=== PATIENT | female | born 1960 | race Two or more races ===

== ENCOUNTER → 2017-05-22 | Outpatient (CLI) | payer OTHER ==
[~2017-05-22] MED LIST: LORTAB 7.51 TAB PO; PHENERGAN PO; PREMPRO 0.3 MG/1 TAB PO; PROTONIX PO
--- NOTE | ~2017-05-22 | CR97 ---
[facility] A Service of [facility] & [facility] RADIOLOGY TEXT RESULTS PATIENT: SERENE GUPTA LOCATION: [facility] : 64 UNIT #: [id number] AGE: [address]: Sharad Barney III, MD SEX: F ORDER DR: [id number] [facility] [address] [place], [place] [address] [id number] O MR#: [id number] Acc #: [id number] NAME: SERENE GUPTA : 1960 SEX: F STUDY DATE/TIME: 05/22/2017 9:41 UNIT: [facility] ROOM: STUDY DESCRIPTION: CR Esophagram Attending Physician: Sharad Barney III, M.D. Referring Physician: Sharad Barney III, M.D. Ordering Physician: Sharad Barney III, M.D. Primary Care Physician: Jose Raul Carney MEDICAL IMAGING REPORT This report is preliminary unless electronic signature is present EXAM Single contrast barium esophagram. INDICATIONS Frequent aspiration and vomiting for 10 days. TECHNIQUE The patient was administered thin barium and multiple fluoroscopic images were obtained. FINDINGS Phi angle is roughly 68.7 degrees. I don't have the patient's immediate postoperative film, but it is very similar in appearance to an exam from December 08, 2016. I don't see any convincing evidence of laparoscopic band slippage, however, I do question if perhaps the band is too tight as visually the channel appears somewhat narrowed and there is some concentric dilatation of the gastric pouch. Remainder of the stomach appeared unremarkable. IMPRESSION 1. No convincing evidence of laparoscopic gastric band slippage. 2. I do think that probably the band is too tight. The channel appears relatively narrow, and the patient has concentric dilatation of the gastric pouch. The patient's esophagus also appears somewhat patulous. Patient was noted to have spontaneous reflux into the [id number] thoracic esophagus. Total fluoroscopy time was 1 minute. A total of 15 fluoroscopic images were obtained. Dictated by... Kaye Anders M.D. [facility] A Service of [facility] & [facility] RADIOLOGY TEXT RESULTS PATIENT: SERENE GUPTA LOCATION: [facility] : [birth year] UNIT #: [id number] AGE: [address]: Sharad Barney III, MD SEX: F ORDER DR: THIS IS AN ELECTRONICALLY VERIFIED REPORT Kaye Anders M.D. at 05/23/2017 12:48 PM AFF/jabby TD: 05/22/2017 22:47 JOB #: [id number] MEDICAL IMAGING REPORT Page 1 of 1 COPY
== END | disposition home or self-care (01) ==
LOC: CRAD 09:00
DX: T17.998A Other foreign object in respiratory tract, part unspecified causing other injury, initial encounter (principal); K21.9 Gastro-esophageal reflux disease without esophagitis
CPT/HCPCS: 74220